=== PATIENT | male | born 1965 | race Caucasian/White ===

== ENCOUNTER 2016-09-15 17:50 | Emergency (ER) | payer OTHER ==
--- NOTE | ~2016-09-15 | CR253 ---
[facility]. [facility] A Service of [facility] & [facility] RADIOLOGY TEXT RESULTS PATIENT: MARK LAUREANO LOCATION: SED : 61 UNIT #: [id number] AGE: [address]: Jossy John SEX: M ORDER DR: [id number] [address] [address] [id number] E MR#: [id number] Acc #: [id number] NAME: MARK LAUREANO : 1965 SEX: M STUDY DATE/TIME: 09/15/2016 17:46 UNIT: SED ROOM: STUDY DESCRIPTION: CR Tibia and Fibula 2 Views Rt Attending Physician: Jossy John Pa-C Referring Physician: Jossy John Pa-C Ordering Physician: Physician Non-Staff Primary Care Physician: Primary Care Physician No MEDICAL IMAGING REPORT This report is preliminary unless electronic signature is present. EXAM Right tib-fib series dated 09/15/2016 COMPARISON None. HISTORY Patient started having pain in the right calf since yesterday. Muscle strain. FINDINGS 2 views of the right tibia and fibula were obtained. There is no evidence of fracture, dislocation, or radiopaque foreign body. IMPRESSION Normal tibia and fibula. Dictated by... Jensen Hill M.D. THIS IS AN ELECTRONICALLY VERIFIED REPORT Jensen Hill M.D. at 09/16/2016 1:49 PM CPR/mjs TD: 09/16/2016 05:59 JOB #: [id number] MEDICAL IMAGING REPORT Page 1 of 1
[~2016-09-15 17:50] MED LIST: IMITREX; IMITREX PO; MEDROL4 MG/DOSE- PO; SKELAXIN PO; ULTRAM PO; [UNRECOGNIZED DRUG - REMARK]
== END 2016-09-15 19:10 | disposition home or self-care (01) ==
LOC: SED 17:50
DX: S86.911A Strain of unspecified muscle(s) and tendon(s) at lower leg level, right leg, initial encounter (principal); X58.XXXA Exposure to other specified factors, initial encounter; Y92.009 Unspecified place in unspecified non-institutional (private) residence as the place of occurrence of the external cause
CPT/HCPCS: 73590; 99283